=== PATIENT | female | born 1975 | race Hispanic/Latino ===

== ENCOUNTER 2016-07-27 11:24 | Outpatient (CLI) | payer OTHER ==
--- NOTE | 2016-07-27 16:31 | Mammography Report ---
BILATERAL DIGITAL DIAGNOSTIC MAMMOGRAM with CAD: 07/27/16 11:24:00 CLINICAL: 40-year-old with a left breast mass. COMPARISON:None. This is a baseline mammogram. FINDINGS: The breasts are heterogeneously dense, which may obscure small masses. A circumscribed 2.5 cm left upper inner breast mass.No architectural distortion or suspicious calcifications. The right breast is negative. We were unable to accommodate her with an ultrasound of the left breast today. IMPRESSION: Left breast mass requiring further evaluation.She has been scheduled to return for a left breast ultrasound. BI-RADS CATEGORY: 0--Needs Additional Imaging ACR BI-RADS MAMMOGRAPHIC CODES: 0 = Needs additional imaging evaluation; 1 = Negative; 2 = Benign; 3 = Probably benign; 4 = Suspicious; 5 = Malignant; 6 = Known biopsy-proven malignancy COMMENT: 1. Dense breast tissue, i.e., adenosis, fibrocystic changes, etc., may obscure an underlying neoplasm. 2. Approximately 10% of cancers are not detected with mammography. 3. A negative mammography report should not delay biopsy if a clinically suspicious mass is present. COMMENT: Patient follow-up letters are generated by our [employer] application.
== END 2016-07-27 11:25 | disposition home or self-care (01) ==
LOC: SPVWC 11:24
PROVIDERS: ATTEND Obstetrics & Gynecology
DX: N63 Unspecified lump in breast (principal)
CPT/HCPCS: 77066; G0204

== ENCOUNTER 2016-07-28 08:15 | Outpatient (CLI) | payer OTHER ==
--- NOTE | 2016-07-28 08:48 | Ultrasound Report ---
LEFT BREAST ULTRASOUND: 07/28/16 08:15:00 CLINICAL: Palpable left breast lump. COMPARISON: 07/27/16 mammogram. FINDINGS: Ultrasound of the left breast was performed in the area of a palpable lump at 10-11 o'clock.A benign cyst at 11 o'clock 6 cm from the nipple measures 1.8 x 1.7 x 1.4 cm and correlates with the palpable lump. A benign cyst at 10 o'clock 6 cm from nipple measures 5 x 4 x 4 mm and is nonpalpable. No solid mass or shadowing. IMPRESSION: Benign cysts of the left breast. BI-RADS 2 - - Benign RECOMMENDATION: Clinical followup and routine mammographic screening in one year.
== END 2016-07-28 08:16 | disposition home or self-care (01) ==
LOC: SPVWC 08:15
PROVIDERS: ATTEND Obstetrics & Gynecology
DX: N60.02 Solitary cyst of left breast (principal); N63 Unspecified lump in breast